=== PATIENT | female | born 1975 | race Caucasian/White ===

== ENCOUNTER 2020-10-23 09:08 | Emergency (ER) | payer OTHER, SELFPAY ==
--- NOTE | ~2020-10-23 | XR_ITS ---
EXAMINATION: XR HIP, RIGHT CLINICAL INFORMATION: Prior hip replacement. Audible clicking. COMPARISON: None TECHNIQUE: Two views of the right hip. FINDINGS: There is a bipolar hip replacement. The hardware is intact. There is no fracture, dislocation, destructive process, or osteolysis. Soft tissue planes are unremarkable. The SI joints and pubis show no diastases. XR/XR hip RT min 2V IMPRESSION: Right hip replacement. Hardware intact. No osteolysis.
[2020-10-23 09:44] VITALS: BP 151/91; PULSE 92; RESP 18; TEMP 37.1; O2SAT 98; BMI 26.5
--- NOTE | 2020-10-23 10:02 | ED.GENADULT ---
HPI - General Adult General Chief complaint: Extremity Injury, Lower Stated complaint: hip replacement, popped out of place! work related Time Seen by Provider: 10/23/20 09:53 Source: patient Mode of arrival: ambulatory Limitations: no limitations History of Present Illness HPI narrative: Patient presents ED for right hip pain. Patient states last night she was trying to move a heavy patient and felt a pop in the right hip. Patient states history of right hip replacement 21 years ago and every time she walks since incident she hears clicking in the right hip. Patient denies any blunt trauma to the hip of falling to the ground. Patient denies any external external rotation of lower extremity. Related Data Allergies Allergy/AdvReac Type Severity Reaction Status Date / Time No Known Allergies Allergy Verified 10/23/20 09:56 Review of Systems Review of Systems: Yes all other systems are reviewed and are negative Constitutional: Constitutional: Reports as per HPI and Reports no additional constitutional complaints Eyes: Eyes: Reports as per HPI and Reports no additional eye complaints ENT: Reports system reviewed and no additional complaints, except as documented and Reports as per HPI Cardiovascular: Cardiovascular: Reports as per HPI and Reports no additional cardiovascular complaints Respiratory: Respiratory: Reports as per HPI and Reports no additional respiratory complaints Gastrointestinal: Gastrointestinal: Reports as per HPI and Reports no additional gastrointestinal complaints Genitourinary: Genitourinary: Reports no additional female genitourinary complaints and Reports as per HPI Musculoskeletal: Musculoskeletal: Reports no additional musculoskeletal complaints, Reports as per HPI and Reports arthralgias (Right hip pain) Neurologic: Reports system reviewed and no additional complaints, except as documented and Reports as per HPI Psychiatric: Psychiatric: Reports no additional psychiatric complaints and Reports as per HPI [facility] Past Medical History Surgical History (Updated 10/23/20 @ 09:46 by Cari Smith) S/P hip replacement Social History Social History Advance Directives: Yes Advance Directives Information Provided: Yes Advance Directives on File: No Patient : No Physical Exam Vital Signs: Vital Signs: Last Vital Signs Temp 98.8 F 10/23/20 09:44 Pulse 92 10/23/20 09:44 Resp 18 10/23/20 09:44 BP 151/91 H 10/23/20 09:44 Pulse Ox 98 10/23/20 09:44 Body Mass Index 26.5 Const: General: cooperative, healthy appearing, comfortable, no acute distress, well developed, alert, awake and Physically active Orientation/consciousness: patient oriented x3 HENMT: Head: Yes normal to inspection, Yes No palpable skull fracture present, Yes normocephalic and Yes atraumatic Eyes: General: appearance normal, both eyes and all related structures Neck: Neck: Yes normal visual inspection, Yes full ROM, Yes no lymphadenopathy, Yes no meningeal signs, Yes trachea midline, Yes supple and No tender Chest: Chest palpation & inspection: normal inspection of the chest and normal palpation of entire chest wall Resp: Effort & Inspection: normal respiratory effort and able to speak in complete sentences Auscultation: clear to auscultation bilaterally Cardio: Jugular venous distension: no JVD Heart sounds: S1 normal heart sound present and S2 normal heart sound present GI: Inspection: Yes normal to inspection and No abdominal wall ecchymosis Palpation (GI): Soft to palpation, not firm, nontender, no guarding and not rigid : General: No CVA tenderness and Yes no CVA tenderness Back/Spine/Pelvis: Back: no CVA tenderness, No CVA tenderness and No back tenderness Skin: General skin exam: no rashes or lesions noted and elasticity normal Neuro: General: patient oriented x3, no meningeal signs and CN's II-XI intact bilaterally Cranial nerves: Yes CN's II-XII intact bilaterally Extrem: Other: Right lower extremity negative for internal/external rotation. Patient has complete range of motion of right lower extremity. Will wait for a female supervisor facepiece line to examine hip area on the clothes. General: Yes normal to inspection and Yes full ROM Psych: Appearance: grossly normal, well kempt and not disheveled Course Course Course Narrative: Patient sent for right hip x-ray Reevaluation(s) Reevaluation #1: X-ray negative for any fracture, dislocation, or hardware misplacement. Right hip/groin area examined and negative for any erythema, palpable mass, fluctuance, ecchymosis, or deformity. FEmoral pulse popliteal pulse and feet pulses intact. Neuro exam intact. Patient has normal gait. Time: 10:57 Medical Decision Making [facility] Narrative Medical decision making narrative: Hip clicking. Normal pain Discharge Plan Discharge Clinical Impression: Acute hip pain Patient Disposition: Home, Self-Care Instructions: Hip Pain (ED) Additional Instructions: X-ray shows that your hardware is intact and negative for any fracture or dislocation. Return to the ED for any severe pain of right hip, right lower extremity swelling, calf pain, redness, hotness or coolness of lower extremity, bluish black discoloration of toes, or any other concerning symptoms. Please follow-up with your PCP. You can take [id number] Motrin/Tylenol for pain relief Interventions: ED Discharge Assessment Last Done: 10/23/20 11:14 Discharge Date/Time: 10/23/20 11:15 Print Language: Lithuanian
== END 2020-10-23 11:15 | disposition home or self-care (01) ==
PROVIDERS: Emergency Provider Emergency Medicine Emergency Medical Services
DX: M25.551 Pain in right hip (principal); Z96.641 Presence of right artificial hip joint
CPT/HCPCS: 73502; 99283

== ENCOUNTER → 2020-10-28 11:12 | Outpatient (BNVA) | payer BC, SELFPAY | PROVIDERS: Visit Provider Physician Assistant Medical | DX: S79.811A Other specified injuries of right hip, initial encounter (principal); X50.1XXA Overexertion from prolonged static or awkward postures, initial encounter | CPT/HCPCS: 99203 ==

== ENCOUNTER 2020-11-04 12:19 | Outpatient (RCR) | payer OTHER, BC, SELFPAY ==
--- NOTE | 2020-11-04 16:03 | MHC.PT.EP ---
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 Pt WENT TO ER (XRAY R HIP NEGATIVE FOR HARDWARE DISRUPTION) AND SAW WC AND GIVEN STRETCHES/EX FOR SNAPPING HIP SYNDROME AND PT REFERRAL. Pt REPORTS SHE HAS BEEN WORKING ON HOME PROG ALONG WITH [employer] AND IS NOW 85% BETTER WITH SIGNIFICANTLY LESS SNAPPING NOTED. Pt WANTED TO KEEP PT EVAL FOR ANY FURTHER INFO. 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 Pt PRESENTS WITH GOOD OVERALL ROM AND STRENGTH R HIP WITH GOOD UNDERSTANDING AND PERF OF STRETCHES/EXS FOR SNAPPING HIP SYNDROME (ADDED HIP ADD/BRIDGE AND HIP FLEXOR STRETCH WITH ED RE CAUTION WITH ITB/PIRIFORMIS STRETCHES BECAUSE OF THR PRECAUTIONS). MAY BENEFIT FROM 1 FU VISIT TO ENSURE CONTINUED RELIEF OF SXS Frequency and Duration: The patient will be seen 1-2 MORE SESSIONS Short Term Goals: 1. I HEP WITH DC EX PLAN 2. CONTINUED RELIEF OF SNAPPING R ANT HIP 3. CONTINUED LIMITED PAIN R HIP 4. RELEASE TO FD WORK Halfway Goals: Treatment Plan: Modalities to reduce pain, spasms and effusion. Manual therapy to restore motion and function. Therapeutic exercise to improve strength and flexibility. Neuromuscular re-education for posture and balance. Therapeutic activities to return to functional activities of daily living. Electronically signed by: FERNANDA BERNAL PT Please sign and return to therapist. Thank you for your referral.
--- NOTE | 2020-12-30 15:16 | MHC.PT.DC ---
[facility] [place] Office [place] Office [place] Office [address] [phone] F: [phone] F: [phone] F: [phone] F: [phone] Physical Therapy Discharge Report Diagnosis: R SNAPPING HIP Date of Surgery: NA ACUTELY BUT HX OF R THR IN 1999 Date of Evaluation: 11/04/20 Date of Discharge: 12/30/20 Treatments to Date: 1 Cancellations to Date: No Shows to Date: Discharge Status: Patient Elected to Stop Discharge Summary: Pt SEEN FOR INIT EVAL/RX ONLY. 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 Pt WENT TO ER (XRAY R HIP NEGATIVE FOR HARDWARE DISRUPTION) AND SAW WC AND GIVEN STRETCHES/EX FOR SNAPPING HIP SYNDROME AND PT REFERRAL. Pt REPORTS SHE HAS BEEN WORKING ON HOME PROG ALONG WITH [employer] AND IS NOW 85% BETTER WITH SIGNIFICANTLY LESS SNAPPING NOTED. Pt WANTED TO KEEP PT EVAL FOR ANY FURTHER INFO. 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 Pt PRESENTS WITH GOOD OVERALL ROM AND STRENGTH R HIP WITH GOOD UNDERSTANDING AND PERF OF STRETCHES/EXS FOR SNAPPING HIP SYNDROME (ADDED HIP ADD/BRIDGE AND HIP FLEXOR STRETCH WITH ED RE CAUTION WITH ITB/PIRIFORMIS STRETCHES BECAUSE OF THR PRECAUTIONS). MAY BENEFIT FROM 1 FU VISIT TO ENSURE CONTINUED RELIEF OF SXS.... NO FURTHER APPTS ATTENDED Electronically signed by: FERNANDA BERNAL PT Please sign and return to therapist. Thank you for your referral.
== END 2020-12-30 15:17 | disposition home or self-care (01) ==
LOC: HO.PTWFD 12:19
PROVIDERS: PCP Internal Medicine Geriatric Medicine; Visit Provider Physician Assistant Medical
DX: M24.851 Other specific joint derangements of right hip, not elsewhere classified (principal)
CPT/HCPCS: 97110; 97161

== ENCOUNTER → 2020-11-05 11:11 | Outpatient (BNVA) | payer BC, SELFPAY | PROVIDERS: PCP Internal Medicine Geriatric Medicine; Visit Provider Physician Assistant Medical | DX: M24.851 Other specific joint derangements of right hip, not elsewhere classified (principal) | CPT/HCPCS: 99213 ==